=== PATIENT | male | born 1980 | race Caucasian/White ===

== ENCOUNTER 2025-06-24 08:02 | Inpatient (IN) | payer MEDICAID, OTHER ==
[~2025-06-24] VITALS: Ht 165.1 cm; Wt 69.9 kg
[2025-06-24 08:12] VITALS: O2SAT 92
[2025-06-24 08:48] LABS: BASOPHILS % 0.5 % (0.0-2.0); EOSINOPHILS % 0.2 % (0.0-5.0); HEMATOCRIT. 36.8 % (42.0-52.0); HEMOGLOBIN. 12.7 g/dL (14.0-18.0); LYMPHOCYTES % 9.4 % (20.0-50.0); MEAN PLATELET VOLUME 7.5 fl (7.4-10.4); MONOCYTES % 7.0 % (2.0-8.0); NEUTROPHILS % 82.9 % (40.0-76.0); PLATELET 74 x1000/uL (130-400); RED BLOOD CELL COUNT 3.12 mill/uL (4.7-6.1); RED CELL DISTRIBUTION WIDTH 14.5 % (11.6-14.6)
[2025-06-24 08:53] LABS: ADD RBC MORPHOLOGY YES
[2025-06-24 09:10] LABS: CREATININE 0.5 mg/dL (0.6-1.3); UREA NITROGEN BLOOD < 5 mg/dL (9-23)
[2025-06-24 09:11] LABS: TROPONIN I HIGH SENSITIVITY < 4 ng/L (3.0-53)
[2025-06-24 09:20] LABS: INR 1.6
[2025-06-24 09:24] LABS: ETHANOL BLOOD 131 mg/dL (<10)
[2025-06-24 10:41] LABS: PLATELET ESTIMATE DECREASED
[2025-06-24] MEDS: KCL 20MEQ/100ML PREMIX 100 ML IV SCH ×2 (11:38→21:46)
[2025-06-24] MEDS ORDERED: CLONIDINE 0.1MG TABLET PO PRN (12:00)
[2025-06-24] MEDS ORDERED: ACETAMINOPHEN 325MG TABLET PO PRN ×2 (12:00)
[2025-06-24] MEDS ORDERED: ONDANSETRON HCL 4MG/2ML INJ IV PRN (12:00)
[2025-06-24] MEDS ORDERED: LORAZEPAM 2MG/ML UD SYRINGE IV PRN (12:15)
[2025-06-24 13:00] VITALS: BP 149/88; PULSE 94; RESP 17; TEMP 36.4736
[2025-06-24] MEDS ORDERED: SODIUM BICARBONATE 4.2% 2.5MEQ/5ML VIAL IV ONE (14:55)
[2025-06-24] MEDS ORDERED: LIDOCAINE HCL 1% 10 MG/ML 10ML VIAL ONE (14:55)
[2025-06-24 16:00] VITALS: BP 149/83; PULSE 94; RESP 18; TEMP 36.6; O2SAT 96
[2025-06-24 20:00] VITALS: BP 139/78; PULSE 94; RESP 20; TEMP 37.3; O2SAT 99
[2025-06-24] MEDS: THIAMINE HCL 100 MG in SODIUM CHLORIDE 0.9% 49 ML IV SCH (21:46)
[2025-06-25 07:44] LABS: BASOPHILS % 0.3 % (0.0-2.0); EOSINOPHILS % 0.2 % (0.0-5.0); HEMATOCRIT. 33.6 % (42.0-52.0); HEMOGLOBIN. 11.7 g/dL (14.0-18.0); LYMPHOCYTES % 10.0 % (20.0-50.0); MEAN PLATELET VOLUME 8.3 fl (7.4-10.4); MONOCYTES % 10.8 % (2.0-8.0); NEUTROPHILS % 78.7 % (40.0-76.0); PLATELET 56 x1000/uL (130-400); RED BLOOD CELL COUNT 2.87 mill/uL (4.7-6.1); RED CELL DISTRIBUTION WIDTH 14.6 % (11.6-14.6)
[2025-06-25 07:47] LABS: UREA NITROGEN BLOOD < 5 mg/dL (9-23)
[2025-06-25 07:49] LABS: PHOSPHORUS 2.2 mg/dL (2.5-4.9)
[2025-06-25 08:00] VITALS: BP 122/70; PULSE 91; RESP 13; TEMP 37; O2SAT 100
[2025-06-25 08:49] LABS: CREATININE 0.3 mg/dL (0.6-1.3)
[2025-06-25 12:00] VITALS: BP 132/77; PULSE 89; RESP 15; TEMP 37.1; O2SAT 97
[2025-06-25] MEDS ORDERED: POTASSIUM CHLORIDE 20MEQ TABLET SR PO ONE (14:00)
[2025-06-25] MEDS: MAGNESIUM 2 G PREMIX 50 ML IV SCH (14:15)
[2025-06-25] MEDS: LORAZEPAM 2MG/ML UD SYRINGE IV PRN (14:20)
[2025-06-25 16:00] VITALS: BP 122/80; PULSE 92; RESP 12; TEMP 36.7; O2SAT 99
[2025-06-25 16:14] VITALS: PULSE 88; PULSE 90; RESP 16; TEMP 79.9
[2025-06-25] MEDS: POTASSIUM PHOSPHATE 15 MMOL in DEXT 5% WATER 245 ML IV SCH (17:07)
[2025-06-25] MEDS: CHLORDIAZEPOXIDE 25MG CAPSULE PO SCH (17:07)
[2025-06-25 20:00] VITALS: BP 128/75; PULSE 95; RESP 20; TEMP 36.7; O2SAT 98
[2025-06-26] VITALS: BP 129/72; PULSE 74; RESP 16; TEMP 36.6; O2SAT 97
[2025-06-26 04:00] VITALS: BP 126/74; PULSE 84; RESP 17; TEMP 36.4; O2SAT 96
[2025-06-26 07:44] LABS: UREA NITROGEN BLOOD < 5 mg/dL (9-23)
[2025-06-26 07:45] LABS: BASOPHILS % 0.6 % (0.0-2.0); EOSINOPHILS % 1.6 % (0.0-5.0); HEMATOCRIT. 34.6 % (42.0-52.0); HEMOGLOBIN. 11.8 g/dL (14.0-18.0); LYMPHOCYTES % 13.9 % (20.0-50.0); MEAN PLATELET VOLUME 8.4 fl (7.4-10.4); MONOCYTES % 8.9 % (2.0-8.0); NEUTROPHILS % 75.0 % (40.0-76.0); PLATELET 65 x1000/uL (130-400); RED BLOOD CELL COUNT 2.90 mill/uL (4.7-6.1); RED CELL DISTRIBUTION WIDTH 14.7 % (11.6-14.6)
[2025-06-26 08:00] VITALS: BP 119/67; PULSE 73; RESP 17; TEMP 36.9; O2SAT 94
[2025-06-26 08:34] LABS: CREATININE 0.5 mg/dL (0.6-1.3)
[2025-06-26 12:00] VITALS: BP 120/64; PULSE 78; RESP 17; TEMP 36.8; O2SAT 98
[2025-06-26] MEDS: POTASSIUM CHLORIDE 20MEQ/PACKET PO SCH (14:48)
[2025-06-26 16:00] VITALS: BP 125/64; PULSE 78; RESP 17; TEMP 37.1; O2SAT 98
[2025-06-26 21:40] VITALS: BP 134/89; PULSE 106; RESP 18; TEMP 99.7
== END 2025-06-26 21:52 | disposition short-term general hospital (02) | DRG 433 ==
LOC: ER 08:29 → 7EST 11:17 → EDBEDREQ 11:20 → EDBEDREQTM 11:20 → ENRESERV 12:14
PROVIDERS: ADMIT Student in an Organized Health Care Education/Training Program; ATTEND Student in an Organized Health Care Education/Training Program
PROC: 0W9G3ZZ Drainage of Peritoneal Cavity, Percutaneous Approach (ICD-10-PCS; principal; 2025-06-25)
DX: K70.31 Alcoholic cirrhosis of liver with ascites (principal); E87.20 Acidosis, unspecified; K76.6 Portal hypertension; E83.39 Other disorders of phosphorus metabolism; F10.139 Alcohol abuse with withdrawal, unspecified; E11.9 Type 2 diabetes mellitus without complications; E83.42 Hypomagnesemia; E87.6 Hypokalemia; I25.10 Atherosclerotic heart disease of native coronary artery without angina pectoris; F10.129 Alcohol abuse with intoxication, unspecified
CPT/HCPCS: 36415; 49083; 71045; 74176; 76705; 80048; 80320; 82140; 82550; 82962; 83605; 83735; 84100; 84484; 85025; 93005; 99285; J2003; J2060; J3411; J3475; J3480; J3490; J7060; G0480